=== PATIENT | male | born 1970 | race Two or more races ===

== ENCOUNTER 2023-06-11 08:11 | Day surgery (SDC) | payer OTHER ==
[~2023-06-11] VITALS: Ht 172.7 cm; Wt 81.6 kg
[2023-06-11] MEDS ORDERED: KETOROLAC 30 MG/ML VIAL ONE (09:01)
[2023-06-11] MEDS ORDERED: LIDOCAINE 2% 100 MG/5 ML UJET TP ONE (09:02)
[2023-06-11] MEDS ORDERED: KETOROLAC 30 MG/ML VIAL IVP ONE (10:05)
== END 2023-06-11 10:30 | disposition home or self-care (01) ==
LOC: MDS 08:11 → MMU 08:13 → MDS 10:30
PROVIDERS: ATTEND Internal Medicine Gastroenterology
DX: K59.00 Constipation, unspecified (principal); Z86.010 Personal history of colon polyps; K52.9 Noninfective gastroenteritis and colitis, unspecified; K57.30 Diverticulosis of large intestine without perforation or abscess without bleeding; Z79.82 Long term (current) use of aspirin; Z79.899 Other long term (current) drug therapy
CPT/HCPCS: 45378; 82948; J1885